=== PATIENT | female | born 1960 | race Caucasian/White ===

== ENCOUNTER 2017-04-08 15:20 | Emergency (ER) | payer MEDICARE ==
[~2017-04-08] VITALS: Ht 160 cm; Wt 136.4 kg
[~2017-04-08 15:20] MED LIST: ALDACTONE 25MG25 M1 PO; ASPI325T6 PO; GLUCOTROL10 MG PO; HCTZ 25MG TAB25 MG PO; HYGROTON50 MG PO; LOPRESSOR100 MG PO; NEURONTIN300 MG/CAP PO; NOVOLOG FLEX100 U/ML SQ; PRINIVIL40 MG PO; STOOL SOFTENER100 M2 PO; TRESIBA FL200 UNIT/1 SQ; VASOTEC20 MG PO; VICTOZA6 MG/ML SQ
[2017-04-08 15:45] LABS: BASO # 0.1 (0.0-0.2); BASO % 0.8 % (0.0-2.0); EOS % 0.4 % (0-4.0); GRAN # 7.5 (1.4-6.5); GRAN % 70.1 % (42.2-75.2); HEMATOCRIT 41.7 % (37.0-47.0); HEMOGLOBIN 13.3 g/dl (12.5-16.0); LYMPH # 2.1 (1.2-3.4); LYMPH % 19.4 % (20.0-51.0); MEAN CELL VOLUME 99 fl (80.0-100.0); MEAN CORPUSCULAR HEMOGLOBIN 32 pg (27.0-31.0); MEAN CORPUSCULAR HGB CONC 32 g/dl (33.0-37.0); MEAN PLATELET VOLUME 11.8 fl (7.4-10.4); MONO # 0.9 (0.1-0.6); MONO % 8.7 % (1.7-9.3); PLATELET COUNT 226 K/mm3 (130-400); RED BLOOD COUNT 4.21 M/mm3 (4.10-5.30); REDCELL DISTRIBUTION WIDTH-CV 15.4 % (11.5-14.5)
[2017-04-08 15:46] LABS: INR 1.2 (0.8-3.0); PROTHROMBIN TIME 13.6 SECONDS (9.7-12.8)
[2017-04-08 15:47] LABS: ALANINE AMINOTRANSFERASE 42 U/L (9-52); ALBUMIN 3.4 gm/dL (3.5-5.0); ALKALINE PHOSPHATASE 66 U/L (50-136); ANION GAP 9 mmol/L (7-16); AST,SGOT 24 U/L (15-37); BILIRUBIN,TOTAL 0.7 mg/dL (0.0-1.0); BLOOD UREA NITROGEN 27 mg/dL (7-17); CALCIUM 9.2 mg/dL (8.4-10.2); CARBON DIOXIDE 28 mmol/L (22-30); CHLORIDE 97 mmol/L (98-107); GLUCOSE 193 mg/dL (74-106); POTASSIUM 4.3 mmol/L (3.4-5.0); SODIUM 135 mmol/L (137-145); TOTAL PROTEIN 6.6 gm/dL (6.4-8.2)
[2017-04-08 16:00] LABS: TROPONIN-I < 0.012 ng/mL (0.000-0.034)
[2017-04-08 19:00] VITALS: BP 100/74; PULSE 87; TEMP 98.8
== END 2017-04-08 19:15 | disposition short-term general hospital (02) ==
LOC: COL.ER 15:20
PROVIDERS: Emergency Medicine
DX: R29.898 Other symptoms and signs involving the musculoskeletal system (principal); E11.42 Type 2 diabetes mellitus with diabetic polyneuropathy; I10 Essential (primary) hypertension; E66.9 Obesity, unspecified; Z90.89 Acquired absence of other organs; Z90.710 Acquired absence of both cervix and uterus; Z98.51 Tubal ligation status; Z86.73 Personal history of transient ischemic attack (TIA), and cerebral infarction without residual deficits; Z79.82 Long term (current) use of aspirin; Z79.4 Long term (current) use of insulin; Z68.43 Body mass index [BMI] 50.0-59.9, adult
CPT/HCPCS: J7030

== ENCOUNTER 2017-05-13 03:39 | Emergency (ER) | payer MEDICARE ==
[~2017-05-13] VITALS: Ht 160 cm; Wt 130.5 kg
[2017-05-13 03:50] VITALS: TEMP 97.5
[2017-05-13] MEDS ORDERED: LIPITOR 40MG TA40 MG PO (03:57)
[2017-05-13] MEDS ORDERED: BREO IH (03:59)
[2017-05-13 04:00] LABS: BASO # 0.1 (0.0-0.2); BASO % 0.6 % (0.0-2.0); EOS # 0.1 (0.0-0.7); EOS % 0.7 % (0-4.0); GRAN # 12.8 (1.4-6.5); GRAN % 77.6 % (42.2-75.2); HEMATOCRIT 43.2 % (37.0-47.0); HEMOGLOBIN 13.8 g/dl (12.5-16.0); LYMPH # 2.6 (1.2-3.4); LYMPH % 15.9 % (20.0-51.0); MEAN CELL VOLUME 95 fl (80.0-100.0); MEAN CORPUSCULAR HEMOGLOBIN 31 pg (27.0-31.0); MEAN CORPUSCULAR HGB CONC 32 g/dl (33.0-37.0); MEAN PLATELET VOLUME 11.7 fl (7.4-10.4); MONO # 0.8 (0.1-0.6); MONO % 4.7 % (1.7-9.3); PLATELET COUNT 252 K/mm3 (130-400); RED BLOOD COUNT 4.53 M/mm3 (4.10-5.30); REDCELL DISTRIBUTION WIDTH-CV 13.9 % (11.5-14.5)
[2017-05-13] MEDS ORDERED: VICTOZA6 MG/ML SQ ×2 (04:05→07:57)
[2017-05-13] MEDS ORDERED: CORTEF 10MG TAB10 MG PO (04:11)
[2017-05-13 04:13] LABS: ALANINE AMINOTRANSFERASE 34 U/L (9-52); ALBUMIN 3.3 gm/dL (3.5-5.0); ALKALINE PHOSPHATASE 90 U/L (50-136); ANION GAP 14 mmol/L (7-16); AST,SGOT 20 U/L (15-37); BILIRUBIN,TOTAL 0.8 mg/dL (0.0-1.0); BLOOD UREA NITROGEN 30 mg/dL (7-17); C-REACTIVE PROTEIN 4.8 mg/dL (0.0-0.9); CALCIUM 9.9 mg/dL (8.4-10.2); CARBON DIOXIDE 30 mmol/L (22-30); CHLORIDE 99 mmol/L (98-107); GLUCOSE 163 mg/dL (74-106); MAGNESIUM 1.7 mg/dL (1.6-2.3); PHOSPHOROUS 3.3 mg/dL (2.5-4.5); POTASSIUM 4.2 mmol/L (3.4-5.0); SODIUM 142 mmol/L (137-145); TOTAL PROTEIN 7.1 gm/dL (6.4-8.2)
[2017-05-13 04:26] LABS: TROPONIN-I < 0.012 ng/mL (0.000-0.034)
[2017-05-13 05:01] LABS: COLLECTION METHOD CLEAN CATCH
[2017-05-13 05:22] LABS: BUDDING YEAST Present /hpf; MUCOUS Present /lpf; PH 5 (5-8); SQUAMOUS EPITHELIAL 0-2 /hpf; URINE APPEARANCE Hazy; URINE BACTERIA Rare /hpf; URINE BILIRUBIN Negative (NEGATIVE); URINE BLOOD Negative (NEGATIVE); URINE COLOR Yellow; URINE GLUCOSE 1+ (NEGATIVE); URINE KETONE Negative (NEGATIVE); URINE LEUKOCYTE ESTERASE Trace (NEGATIVE); URINE NITRATE Negative (NEGATIVE); URINE PROTEIN(semi-quant) Negative (NEGATIVE); URINE UROBILINOGEN Negative (NEGATIVE)
[2017-05-13] MEDS ORDERED: DOXYCYCLINE 10100 MG PO (07:40)
[2017-05-13] MEDS ORDERED: PROBIOTIC FORMU1 CAP PO (07:41)
[2017-05-13] MEDS ORDERED: ZOFRAN ODT4 MG PO (07:41)
[2017-05-13] MEDS ORDERED: LOPRESSOR 225 MG/TAB PO (07:52)
[2017-05-13] MEDS ORDERED: NORCO 325 MG-51 TAB PO (07:55)
[2017-05-13] MEDS ORDERED: NOVOLOG 100U100 U/M1 SQ (07:56)
[2017-05-13 08:19] VITALS: BP 152/99; PULSE 111
== END 2017-05-13 08:20 | disposition short-term general hospital (02) ==
LOC: COL.ER 03:39
PROVIDERS: Emergency Medicine
DX: K04.7 Periapical abscess without sinus (principal); A41.9 Sepsis, unspecified organism; N39.0 Urinary tract infection, site not specified; I10 Essential (primary) hypertension; E11.9 Type 2 diabetes mellitus without complications; Z79.82 Long term (current) use of aspirin; Z79.4 Long term (current) use of insulin; Z79.51 Long term (current) use of inhaled steroids; W01.198A Fall on same level from slipping, tripping and stumbling with subsequent striking against other object, initial encounter
CPT/HCPCS: J1450; J1720; J1956; J7030

== ENCOUNTER 2018-02-08 12:15 | Emergency (ER) | payer MEDICARE, MEDICAID ==
[~2018-02-08] VITALS: Ht 162.6 cm; Wt 125.0 kg
[~2018-02-08 12:15] MED LIST changes: +ALDACTONE 100M100 MG PO; -ALDACTONE 25MG25 M1 PO; +BREO IH; +CORTEF 10MG TAB10 MG PO; +DOXYCYCLINE 10100 MG PO; +LIPITOR 40MG TA40 MG PO; +LOPRESSOR 225 MG/TAB PO; +NORCO 325 MG-51 TAB PO; +NOVOLOG 100U100 U/M1 SQ; +PROBIOTIC FORMU1 CAP PO; +ZOFRAN ODT4 MG PO
[2018-02-08 12:19] VITALS: BP 192/88; TEMP 96.5
[2018-02-08] MEDS ORDERED: NORCO 325 MG-51 TAB PO (13:12)
[2018-02-08] MEDS ORDERED: LIDODERM 5% PATC1 EA TP ×3 (13:12→13:33)
[2018-02-08] MEDS ORDERED: NAPROXEN 3375 MG/TAB PO ×3 (13:12→13:33)
[2018-02-08 13:40] VITALS: PULSE 65
== END 2018-02-08 13:40 | disposition home or self-care (01) ==
LOC: COL.ER 12:15
DX: M25.512 Pain in left shoulder (principal); E11.9 Type 2 diabetes mellitus without complications; I10 Essential (primary) hypertension; E66.9 Obesity, unspecified; Z86.73 Personal history of transient ischemic attack (TIA), and cerebral infarction without residual deficits; Z79.4 Long term (current) use of insulin; Z79.51 Long term (current) use of inhaled steroids; Z68.42 Body mass index [BMI] 45.0-49.9, adult
CPT/HCPCS: J1885

== ENCOUNTER 2022-06-03 13:19 | Inpatient (IN) | payer MEDICARE, MEDICAID ==
[2022-06-03] VITALS (267 sets, daily range): BP systolic 136–146; BP diastolic 96–106; PULSE 89–92; TEMP 99.5–100.4; O2SAT 73–100
[~2022-06-03] VITALS: Ht 162.6 cm; Wt 146.0 kg
[~2022-06-03 13:19] MED LIST changes: +LIDODERM 5% PATC1 EA TP; +NAPROXEN 3375 MG/TAB PO
--- NOTE | 2022-06-03 15:30 | NUR ---
[facility] AT BEDSIDE TO PLACE PERIPHERAL IV TILL THEY CAN PLACE PICC LINE TOMORROW, SEE CHARTING
--- NOTE | 2022-06-03 15:48 | NUR ---
CALLED ULTRASOUND PER FOR АНДРЕЙ DUPLEX TO R/O DVT, SEE ORDER, ULTRASOUND TO COME TO FLOOR SOON
--- NOTE | 2022-06-03 16:00 | NUR ---
LAB UNABLE TO GET LAB DRAWS AFTER MULTI ATTEMPTS FROM TWO DIFFERENT LAB TECHS. SUPERVISOR REFRACTORY PRODUCTS TO COME AND TRY.
--- NOTE | 2022-06-03 16:02 | NUR ---
Vancomycin Initial Dosing Pharmacy Note Ordering provider: Glenroy Lancaster MD Indication/duration: SSTI Relevant comorbidities: DM2 , CKD LABS: SCR 1.4 Recommendation: 1G Q12H 5D Loading dose: 2 grams Maintenance dose: 1 gram every 12 hours Trough goal: 10-15 ug/mL
[2022-06-03 16:14] LABS: ARTERIAL BLD GAS O2 SATURATION 96.7 % (92-100); ARTERIAL BLD GAS TCO2 CT 26.5; ARTERIAL BLOOD GAS BASE EXCESS 1.2 (-2-2); ARTERIAL BLOOD GAS HCO3 25.3 meq/L (22-26); ARTERIAL BLOOD GAS PCO2 38.2 mmHg (35-45); ARTERIAL BLOOD GAS PO2 81.7 mmHg (80-100); ARTERIAL BLOOD GAS pH 7.44 (7.35-7.45)
[2022-06-03] MEDS ORDERED: COREG 25MG25 MG/TAB PO (17:01)
--- NOTE | 2022-06-03 17:30 | NUR ---
CT CALLED TO INQUIRE ABOUT PATIENT BEFORE ORDERED SCAN, UPDATE GIVEN. AT NURSES STATION REPORTING HE ENTERED AN ORDER FOR NARCAN THAT WE CAN TRY, AFTER HER CT, TO SEE IF IT IMPROVED HER LETHERGY. PATIENT'S REPORTS NO DRUG USE
--- NOTE | 2022-06-03 17:35 | NUR ---
TELE CALLED AND REPORTED A 2 SEC RUN OF V-TACH. RN NOTED HR IS NOW 120-130'S ON TELE. HR WAS 70'S ON ADMIT. PATIENT STILL VERY LETHARGIC EVEN AFTER BLOOD SUGAR CORRECTION, LAST BS WAS 92. ABG'S WERE WNL. HOSPITALIST NOTIFIED. SEE ORDERS TO TRANSFER TO ICU. PRODUCT PROMOTER SALES PERSON NOTIFIED. WAITING ON ICU BED.
--- NOTE | 2022-06-03 18:20 | NUR ---
PATIENT TRANSFERING TO ICU3 VIA BED. REPORT CALLED TO ICU NURSE PRIOR TO TRANSFER. PATIENT IS ORIENTED X2 BUT IS STILL LETHARGIC AND FALLS BACK TO SLEEP FREQUENTLY. 02 @ 2L PER NC WITH SATS IN LOW 90'S. HR IS CURRENTLY 118-125 ON TELE. RESP 24. B/P WNL. IV VANCO INFUSING VIA PUMP INTO RIGHT UPPER ARM IV STARTED BY AIVS. LEFT UPPER ARM IV TO INT. [facility] DISCONNECTED FOR TRANSPORT. DSG TO RLE INTACT AND CHANGED TODAY IN [place] BEFORE TRANSFER. HOSPITALIST TEAM CONTINUES TO ENTER ORDERS. ICU NURSE MEET RN AND PCT IN ROOM. AT BEDSIDE. PATIENT TRANSFERED VIA SLIDE BOARD TO ICU BED. PERSONAL BELONGINGS WITH . STAFF IN PPE FOR RECENT HX OF BED BUGS WHILE HOSPITALIZED IN [place]. JORGE CALIX TAKING OVER CARE.
--- NOTE | 2022-06-03 19:05 | NUR ---
NOTIFIED CT OF PATIENT'S TRANSFER TO ICU TO COMPLETE THE ORDERED CT
[2022-06-03] MEDS ORDERED: CATAPRES0.2 MG PO (23:15)
[2022-06-03] MEDS ORDERED: NOVOLOG 100U100 U/M1 SQ ×2 (23:17→23:18)
[2022-06-03] MEDS ORDERED: DITROPAN 5MG TAB5 MG PO (23:20)
[2022-06-03] MEDS ORDERED: PROAIR HFA0.09 MG/AC IH (23:21)
[2022-06-03] MEDS ORDERED: PROTONIX 40MG T40 MG PO (23:21)
[2022-06-03] MEDS ORDERED: DEMADEX 20MG20 M1 PO (23:22)
[2022-06-04] VITALS (571 sets, daily range): BP systolic 121–157; BP diastolic 40–79; PULSE 77–93; TEMP 98.1–100.4; O2SAT 72–100
--- NOTE | 2022-06-04 02:32 | NUR ---
1820 PT TRANSFERED TO ICU FIFI PATEL NURSE WHO TOOK REPORT ON RECIEVING PT. BEDSIDE REPORT OBTAINED FROM FIFI PATEL AT THIS TIME.
--- NOTE | 2022-06-04 02:33 | NUR ---
1930 INITIAL ASSESSMENT OBTAINED. PT APPEARS TO BE LETHARGIC HOWEVER LOOKS AT TO ANSWER QUESTIONS. PT IS ALERT AND ORIENTED TO PERSON PLACE AND TIME. ABLE TO START CORRECT YEAR AFTER ASKING PT SEVERAL TIMES. MADE A SARCASTIC COMMENT TO PT AND PT THEN POINTED MIDDLE FINGER TO THEY BOTH LAUGHED. PT REFUSED LOVONOX INJECTION, PT EDUCATED AND CONTINUED TO REFUSE. 1999 DR. LOPEZ AT BEDSIDE TO PLACE CENTRAL LINE, PT REFUSED CENTRAL LINE. PT AGAIN EDUCATED AND CONTINUED TO REFUSE. 2299 LEFT TO GO SLEEP IN VAN OUTSIDE WITH PUPPY WHO ALSO IS IN THE VAN PER PT . PT HAS BEEN MORE VOCAL AND HITTING CALL LIGHT FOR HELP NOW THAT IS NOT IN ROOM. BUT IS CALLING OUT FOR . PREVIOUSLY STATED HE TAKES CARE OF HER AT HOME WITH A SIT TO STAND LIFT TO TRANSFER. 0020 WOUND CULTURES OBTAINED DURING FULL BED CHANGE FROM URINE INCONT. BLE WITH CHRONIC WOUNDS WITH SANGUIENEOUS DRAINAGE. NEW ABD PADS PLACED TO DRAINING SITES AND WRAPPED WITH KERLIX GAUZE.
--- NOTE | 2022-06-04 03:42 | NUR ---
PT ADMITTED TO ICU ON CONTACT PRECAUSTIONS FOR BED BUGS. PCR BACK POSTIVE FOR [facility]. WILL CONTINUE PRECAUSTIONS FOR BOTH.
[2022-06-04 04:39] LABS: MEAN CELL VOLUME 81 fl (80.0-100.0); MEAN CORPUSCULAR HGB CONC 30 g/dl (33.0-37.0); MEAN PLATELET VOLUME 11.4 fl (7.4-10.4); PLATELET COUNT 194 K/mm3 (130-400); RED BLOOD COUNT 4.03 M/mm3 (4.10-5.30); REDCELL DISTRIBUTION WIDTH-CV 19.5 % (11.5-14.5)
[2022-06-04 04:54] LABS: HEMATOCRIT 32.6 % (37.0-47.0); HEMOGLOBIN 9.9 g/dl (12.5-16.0); MEAN CORPUSCULAR HEMOGLOBIN 25 pg (27-31)
[2022-06-04 05:06] LABS: CALCIUM 8.9 mg/dL (8.4-10.2); CREATININE, serum 1.23 mg/dL (0.57-1.11); MAGNESIUM 1.7 mg/dL (1.6-2.6); POTASSIUM 3.8 mmol/L (3.5-4.5)
[2022-06-04 05:08] LABS: C-REACTIVE PROTEIN 40.7 mg/dL (0.00-0.50)
[2022-06-04 05:09] LABS: BAND 11 % (0-10); LYMPHOCYTE 5 % (20.0-51.0); NEUTROPHILS 80 % (42.0-75.2); PLATELET ESTIMATE NORMAL (NORMAL)
[2022-06-04 05:10] LABS: ANISOCYTOSIS 2+; HYPOCHROMIA 3+; MICROCYTOSIS 1+
[2022-06-04 05:11] LABS: SCHISTOCYTES 1+
--- NOTE | 2022-06-04 10:30 | NUR ---
Palliative care consult - refer to consultation intervention. Janice (Social Work) & this RN met with patient & in ICU #3. Patient drowsy, but opens eyes to voice. Explained reason for visit being goals of care. Sky () able to explain the reason for hospitalization, reason for transfer from [place] & recent health related events of the patient's. Patient had consult to see wound care at [facility], but unable to attend related to being admitted. Discussed current living situation; patient living at home with as primary patient care technician, uses lift to get in/out of wheelchair & on/off commode. Patient sleeps in recliner lift chair. provides ADLS, makes meals, administers medications, etc. Patient is able to feed herself. Viris stated that outpatient PT/OT was previously used by the patient, but she did not not meet goals for walking to continue with insurance coverage. Patient was in a SNF after a long acute hospital stay & does not want to return to a group home setting. Ultimate goal is for patient to gain some strength back so that she does not need to use a lift. Per , she would like to be able to walk down [place] of their home & be able to walk with w/c. Patient does not want to go to a SNF in order to work on rehab to have strength to be able to walk independently. Discussed decision maker in the event that the patient could not meet own decisions. stated that he is DPOA. Asked about a secondary decision maker & he stated that the patient's son is also a DPOA. Paperwork should be on file at [facility] or [facility]. Discussed a living will & stated the patient made one when she was at [facility] for pituitary surgery; [place] should have on file. Discussed that patient was listed as a chemical code & discussed the specifics of what care that would include/exclude. stated that patient was a on ventilator in the past & does not want that again. 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 Does not want chest compressions or intubation; chemical code as ordered meets their request. Advised that patient had orders to move back to the medical unit. Will take day by day to see if patient's progress warrants outpatient vs. skilled services. Need for outpatient antibiotics with potential for home health visits. Social work to follow.
--- NOTE | 2022-06-04 10:56 | NUR ---
SW attendend rounding this morning with hospitalist. Patients Sky ([phone]) present at bedside. Palliative care consult ordered. This SW and ICU director Gladys RN meet with patient and to discuss goals of care. Together they live in a trailor located in [place]. Patient is wheelchair bound at baseline and they have two lifts within the home to assist getting the patient in the chair. She has a electric bed and commode located in the livingroom. Sky provides the patient with all of her ADL cares. He also manages the medications and is employed through[address] to be the patients primary caregiver. Patient does not utilize oxygen at baseline but does have a CPAP machine. Patient sees in [place] for PCP care. She does not currently have any home health or private duty caregivers coming into the home, but does have a referral to see wound care in [place]. Patient does have a DPOA-HC established listing both Sky and her son. At this time, the patient verbalizes that her goal would be to get her "legs down" and both her and Sky are open to home health supports if needed but are adamant that the patient will not be going anywhere post discharge execpt for home. Sky states that the patient has been to [facility] in the past as well as [facility] in [place] and the patient "didn't gain anything from it". Phone call made to [facility] who is able to find a copy of the patients DPOA-HC and copy requested to be faxed to the ICU unit.
--- NOTE | 2022-06-04 13:44 | NUR ---
pt transferred from unit to room, at bedside. pericare completed by JORGE Kelly. keyannawick in place. pt denies needs at this time. call light in reach.
--- NOTE | 2022-06-04 15:15 | NUR ---
Telehealth visit conducted with Dr. Manuel Howard, Infectious Disease. Patient consented to visit. Patients present. Telecommunication initiated without any difficulties during exam. All questions were answered by Dr. Howard
--- NOTE | 2022-06-04 21:27 | NUR ---
Patient assessed at this time, see shift assessment, with PICC on right upper arm, with IV on left subclavian, at bedside, has been refusing her lovenox shots despite reinforcement, dressing to right leg CDI, noted drainage to left leg dressing, removed and dressed with non-adherent pad and wrap with telfa, repositioned at this time, denies further needs, call light and personal items within reach, will continue to monitor.
--- NOTE | 2022-06-05 03:06 | NUR ---
Noted drainage to left leg dressing, dressing changed again at this time.
[2022-06-05 03:15] VITALS: BP 148/61; PULSE 76; TEMP 99.3
[2022-06-05 07:30] LABS: BASO # 0.1 K/mm3 (0.0-0.2); BASO % 0.3 % (0.0-2.0); EOS # 0.2 K/mm3 (0.0-0.7); GRAN # 14.7 K/mm3 (1.4-6.5); GRAN % 89.4 % (42.2-75.2); LYMPH # 0.7 K/mm3 (1.2-3.4); LYMPH % 4.1 % (20.0-51.0); MEAN CELL VOLUME 81 fl (80.0-100.0); MEAN CORPUSCULAR HGB CONC 30 g/dl (33.0-37.0); MEAN PLATELET VOLUME 12.2 fl (7.4-10.4); MONO # 0.7 K/mm3 (0.1-0.6); MONO % 4.5 % (1.7-9.3); PLATELET COUNT 184 K/mm3 (130-400); RED BLOOD COUNT 3.56 M/mm3 (4.10-5.30); REDCELL DISTRIBUTION WIDTH-CV 19.5 % (11.5-14.5)
[2022-06-05 07:32] LABS: HEMATOCRIT 28.8 % (37.0-47.0); HEMOGLOBIN 8.5 g/dl (12.5-16.0); MEAN CORPUSCULAR HEMOGLOBIN 24 pg (27-31)
[2022-06-05 07:38] VITALS: BP 134/72; PULSE 74; TEMP 98.3
[2022-06-05 07:52] LABS: CALCIUM 8.9 mg/dL (8.4-10.2); CREATININE, serum 1.12 mg/dL (0.57-1.11)
--- NOTE | 2022-06-05 09:52 | NUR ---
Initial visit; Patient and her thanked [facility] for looking in on her and visiting, offering God's blessings and keeping her in [facility]'s prayers.
[2022-06-05 11:40] VITALS: BP 137/69; PULSE 74; TEMP 98.7
--- NOTE | 2022-06-05 13:45 | NUR ---
SPOKE WITH TILE MOLDER HAND ABOUT DISCHARGE PLAN OF SNF, MAY REFUSE HOWEVER AN APS REPORT WAS FILED AT THE [facility] ABOUT POOR LIVING SITUATION THAT WAS REPORTED INFESTED. MEDON REPORTED BED BUGS CRAWLING AROUND IN HER C-PAP FROM HOME. PATIENT IS ALSO VERY OBESE, UNABLE TO AMBULATE AND REQUIRES A TOTAL LIFT. WANTS TO CARE FOR AT HOME BUT IS IN DENIAL ABOUT MEETING HER PHYSICAL & MEDICAL NEEDS. TILE MOLDER HAND INVOLVED IN DISCHARGE PLANNING.
--- NOTE | 2022-06-05 15:15 | NUR ---
Telehealth visit conducted with Dr. Manuel Howard, Infectious Disease. Patient consented to visit. Patient's nurse present. Telecommunication initiated without any difficulties during exam. All questions were answered by Dr. Howard
[2022-06-05 16:16] VITALS: BP 153/80; PULSE 76; TEMP 98.1
--- NOTE | 2022-06-05 16:48 | NUR ---
Manager Managed Backup Services met with Patient at bedside. Patient presented with eyes closed and was unresponsive when SW briefed the reccommendation from provider for SNF referral. SW briefed the option for swing bed, Patient appeared to respond with "sure" but was unresponsive when discussing further.
[2022-06-05 19:03] VITALS: BP 147/72; PULSE 78; TEMP 98.7
--- NOTE | 2022-06-05 21:33 | NUR ---
Patient A/O but drowsy, PICC to right upper arm flushes well, INT to left upper shoulder, oxygen at 1LPM via nasal prong, with bilateral leg dressing, left is weeping, will change dressing, denies pain, will facilitate regular turning to sides, call light and personal items within reach, will continue to monitor.
[2022-06-05 23:21] VITALS: BP 152/74; PULSE 73; TEMP 98.8
--- NOTE | 2022-06-06 00:44 | NUR ---
Repositioned patient to her left side, denies further needs.
--- NOTE | 2022-06-06 02:38 | NUR ---
Repositioned patient to upright position, hooked back up to her CPAP.
[2022-06-06 03:43] VITALS: BP 98/68; PULSE 77; TEMP 98.1
[2022-06-06 07:04] LABS: BASO # 0.1 K/mm3 (0.0-0.2); BASO % 0.4 % (0.0-2.0); EOS # 0.2 K/mm3 (0.0-0.7); EOS % 1.6 % (0.0-4.0); GRAN # 9.8 K/mm3 (1.4-6.5); GRAN % 84.8 % (42.2-75.2); LYMPH # 0.8 K/mm3 (1.2-3.4); LYMPH % 6.6 % (20.0-51.0); MEAN CELL VOLUME 81 fl (80.0-100.0); MEAN CORPUSCULAR HGB CONC 30 g/dl (33.0-37.0); MEAN PLATELET VOLUME 12.5 fl (7.4-10.4); MONO # 0.7 K/mm3 (0.1-0.6); MONO % 5.9 % (1.7-9.3); PLATELET COUNT 192 K/mm3 (130-400); RED BLOOD COUNT 3.57 M/mm3 (4.10-5.30); REDCELL DISTRIBUTION WIDTH-CV 19.6 % (11.5-14.5)
[2022-06-06 07:08] LABS: HEMATOCRIT 28.8 % (37.0-47.0); HEMOGLOBIN 8.5 g/dl (12.5-16.0); MEAN CORPUSCULAR HEMOGLOBIN 24 pg (27-31)
--- NOTE | 2022-06-06 07:35 | NUR ---
Received shift report from the night nurseShannon RN.
[2022-06-06 08:00] VITALS: BP 138/59; PULSE 76; TEMP 98.6
--- NOTE | 2022-06-06 08:07 | NUR ---
Dr. Lancaster and pharmacist notified of critical vanco trough result of 37.22 at 0806.
--- NOTE | 2022-06-06 10:56 | NUR ---
Patient awake in bed eating breakfast. PICC on right upper arm intact. Telemonitor in place. Dressing to bilateral lower extremities weeping with yellowish drainage. Noted large blister in bilateral inner thighs. Patient has purewick in use and draining cloudy yellowish urine. See process intervention for notes.
[2022-06-06] MEDS ORDERED: DOXYCYCLINE 10100 MG PO (12:06)
--- NOTE | 2022-06-06 13:32 | NUR ---
Edison PATELindustrial laborer updates filed APS report # [id number]. Senior Architect/Design Manager remains available as needed.
--- NOTE | 2022-06-06 14:15 | NUR ---
Called to patients room as patient was leaving hospital today AMA. Arrived to room just as PICC line was being removed. Nurses were doing final dressing change to bilateral lower extermities. Attempted to speak with patient and her as then nurse knows home situation. Asked how he was able to do dressing changes at home with no assistance and if they understood that if the wound became soiled that she was at high risk for infection. He verbalized understanding of both. Patient yells that she does not want to go to "[facility]" Explained that there are multiple other fci facilities in the area that were able to take care of her needs if that is what she desires. She does not respond. Patient is unable to take care of tolioting needs while here at the hospital. She has a pure wix here and will wear briefs at home. Asked her what they will do when they get home and he verbalizes they use a commode. When ready to leave. RAMSEY Comer and this nurse brought in sit to stand lift to assist patient into w/c for AMA discharge. Explained to and patient that they needed to get to a sitting position to be able to be put into lift. After multiple attempts from and no attmept of patient they were unable to get to that position. This nurse then totally lifted legs for patient and pushed on her back. There was little to no effort from patient. She finally got into sitting position; leaning to the left. Lift was placed up to the patient. Lift sling placed around patient and tightened. Patient given verbal instructions as to how to hold onto lift to get to standing position. On the third attempt (the first two attempts patient let go and essentially almost fell) patient was placed into w/c with quick movement of the w/c under the patient. The had to hold right left onto lift the whole time. The continuously blamed it on the lift and that their lift at home was so much better. He states he recived their equipment from [employer] Equipment at home is very outdated. Once in chair; the patient leaned to the left and is unable to reposition to self. took approx 30 min to get patient arranged into chair. Noted by nurses he lifted her under the arms from behind and by having her put her arms around his neck. JORGE Bartholomew Charge Nurse went to speak with them again. He stated thay had it and did not need help. Patients pushed patient out of unit in home w/c. Patient was given a blanket as she did not have pants. stated well we didnt know she was being discharged today. I also spoke to about the ability to take care of her at home and doing dressing changes. He states well they pay me to do that. He also stated that if she went to a penitentiary they would loose household income and then possibly loose the house and van as Jose Carlos's income was the primary. Reviewed this information with Adelaida Contact Lens Fitter also spoke with Dr. Lancaster regarding the safety of patients discharge. Unfortunately patient is alert and oriented x 3 and able to make own decision. She did state to this nurse if it dont work out maybe ill go to [facility]; I dont want to go [place] they are be investigated. Her husbanded pointed out to her that she needed to rememeber that not everyone could take her as they can not accomadate her needs.
--- NOTE | 2022-06-06 16:31 | NUR ---
Patient declined to have care done in the facility and decided to go on AMA. Dr. Lancaster at the bedside and explained and educated the patient and spouse the importance of being in the hospital .AMA form given to patient's spouse to sign. Dressing changed at bilateral lower extremities, applied vaseline gauze, telfa and kerlix roll to the affected area. Patient left the unit for home at 1428.
== END 2022-06-06 14:28 | disposition left against medical advice (07) | DRG 871 ==
LOC: SURG 13:19 → ICU 19:33 → SURG 06-04 14:38
PROVIDERS: Physician Assistant; ADMIT Internal Medicine
PROC: 02HV33Z Insertion of Infusion Device into Superior Vena Cava, Percutaneous Approach (ICD-10-PCS; principal; 2022-06-04)
DX: A41.01 Sepsis due to Methicillin susceptible Staphylococcus aureus (principal); G93.41 Metabolic encephalopathy; J96.01 Acute respiratory failure with hypoxia; L03.116 Cellulitis of left lower limb; N17.9 Acute kidney failure, unspecified; E24.9 Cushing's syndrome, unspecified; E66.2 Morbid (severe) obesity with alveolar hypoventilation; Z68.43 Body mass index [BMI] 50.0-59.9, adult; Z66 Do not resuscitate; Z86.711 Personal history of pulmonary embolism; R07.9 Chest pain, unspecified; J45.909 Unspecified asthma, uncomplicated; E78.5 Hyperlipidemia, unspecified; I10 Essential (primary) hypertension; K21.9 Gastro-esophageal reflux disease without esophagitis; Z86.73 Personal history of transient ischemic attack (TIA), and cerebral infarction without residual deficits; N32.81 Overactive bladder; Z88.1 Allergy status to other antibiotic agents; Z88.0 Allergy status to penicillin; Z88.2 Allergy status to sulfonamides; Z88.8 Allergy status to other drugs, medicaments and biological substances; I89.0 Lymphedema, not elsewhere classified; E11.649 Type 2 diabetes mellitus with hypoglycemia without coma; Z79.4 Long term (current) use of insulin
CPT/HCPCS: C1751; J0696; J1650; J1815; J3370; J3475; J7040; J7050